=== PATIENT | female | born 1965 | race Caucasian/White ===

== ENCOUNTER → 2020-05-12 14:38 | Outpatient (BNVA) | payer BC, SELFPAY | PROVIDERS: Referring Provider Nurse Practitioner Family; Visit Provider Internal Medicine | DX: E11.65 Type 2 diabetes mellitus with hyperglycemia (principal); E78.5 Hyperlipidemia, unspecified; Z90.5 Acquired absence of kidney | CPT/HCPCS: 99203 ==